=== PATIENT | female | born 1990 | race Caucasian/White ===

== ENCOUNTER 2017-06-28 08:00 | Outpatient (CLI) | payer OTHER ==
[2017-06-30 14:32] LABS: TOTAL PROTEIN,URINE TIMED < 6 mg/dL; TOTAL VOLUME 24HRS,URINE 2500 mL
== END 2017-06-28 23:59 ==
LOC: LAB.R 08:00
PROVIDERS: ATTEND Registered Nurse
DX: Z36.9 Encounter for antenatal screening, unspecified (principal); O99.212 Obesity complicating pregnancy, second trimester
CPT/HCPCS: 84156

== ENCOUNTER 2017-06-28 11:47 | Outpatient (CLI) | payer OTHER ==
[2017-06-28 13:31] LABS: BASOPHILS % (AUTO) 0.3 %; EOSINOPHILS # (AUTO) 0.2 10^3/uL (0.0-0.7); EOSINOPHILS % (AUTO) 1.4 %; HGB - HEMOGLOBIN 11.9 g/dL (12.0-16.0); LYMPHOCYTES # (AUTO) 1.6 10^3/uL (1.5-3.5); LYMPHOCYTES % (AUTO) 13.8 %; MEAN CORPUSCULAR HEMOGLOBIN 29.5 pg (27.0-31.0); MEAN CORPUSCULAR HGB CONC 33.7 g/dL (32.0-36.0); MEAN CORPUSCULAR VOLUME 87.6 fL (81.0-99.0); MEAN PLATELET VOLUME 7.1 fL (7.9-10.8); MONOCYTES # (AUTO) 0.4 10^3/uL (0.0-1.0); MONOCYTES % (AUTO) 3.5 %; NEUTROPHILS # (AUTO) 9.2 10^3/uL (1.5-6.6); PLT - PLATELET COUNT 298 10^3/uL (130-450); RED BLOOD COUNT 4.03 10^6/uL (4.20-5.40); RED CELL DISTRIBUTION WIDTH 14.3 % (12.0-15.0); WHITE BLOOD COUNT 11.4 x10^3/uL (4.8-10.8)
[2017-06-28 13:44] LABS: ALBUMIN 3.6 g/dL (3.2-5.5); ALBUMIN/GLOBULIN RATIO 0.9 (1.0-2.2); BILIRUBIN,TOTAL 0.3 mg/dL (0.2-1.0); CALCIUM 9.2 mg/dL (8.5-10.3); CREATININE 0.5 mg/dL (0.4-1.0); TOTAL PROTEIN 7.5 g/dL (6.7-8.2)
[2017-06-28 13:48] LABS: BILIRUBIN,URINE NEGATIVE (NEGATIVE); GLUCOSE, URINE (UA) NEGATIVE (NEGATIVE); KETONES,URINE (UA) NEGATIVE (NEGATIVE); LEUKOCYTE ESTERASE, URINE NEGATIVE (NEGATIVE); NITRITE,URINE NEGATIVE (NEGATIVE); OCCULT BLOOD,URINE SMALL (NEGATIVE); PROTEIN,URINE NEGATIVE (NEGATIVE); UROBILINOGEN,URINE 0.2 (NORMAL) E.U./dL (NORMAL)
[2017-06-28 13:50] LABS: HEMOGLOBIN A1C 0.5 g/dL; HEMOGLOBIN A1C % 5.7 % (4.6-6.2)
[2017-06-28 13:51] LABS: CLARITY,URINE CLEAR (CLEAR)
[2017-06-28 13:58] LABS: BACTERIA,URINE Moderate /HPF (None Seen); SQUAMOUS EPITHELIAL CELL,UR NONE SEEN (<= Few)
[2017-06-29 12:41] LABS: HIV AG/AB 4TH GEN NON-REACTIVE (NON-REACTIVE)
[2017-06-29 13:06] LABS: HEPATITIS B SURFACE ANTIGEN NON-REACTIVE (NON-REACTIVE); HEPATITIS C ANTIBODY NON-REACTIVE (NON-REACTIVE)
== END 2017-06-28 11:48 | disposition home or self-care (01) ==
LOC: LAB 11:47
PROVIDERS: ATTEND Registered Nurse
DX: O99.212 Obesity complicating pregnancy, second trimester (principal); Z36.9 Encounter for antenatal screening, unspecified
CPT/HCPCS: 36415; 80053; 81001; 81599; 82950; 83036; 85025; 86592; 86762; 86803; 86850; 86900; 86901; 87340; 87389

== ENCOUNTER 2017-09-06 07:23 | Outpatient (CLI) | payer OTHER ==
--- NOTE | 2017-09-06 12:53 | Ultrasound Report ---
Procedure Date: 09/06/2017 Accession Number: [id number] / [id number] Procedure: US - OB Detailed Eval CPT Code: FULL RESULT: EXAM: OB Detailed Eval DATE: 09/06/2017 9:46 AM CLINICAL HISTORY: ENCOUNTER FOR SCREENING OF MOTHER TECHNIQUE: Real-time scanning was performed with franchise sales representative static images obtained. COMPARISON: None. Dating according to the order is 22 weeks 5 days. LAST MENSTRUAL PERIOD: Uncertain Clinical Age: 22 weeks 5 days US Age: 23 weeks 4 days EFW Hadlock: 602 grams EFW % Hadlock: 80% Heart Rate: 144 bpm EDC: 01/05/2018 US EDC: 12/30/2017 BPD Hadlock: 23 weeks 5 days; Mean mm 58 HC Hadlock: 23 weeks 2 days; Mean mm 212 AC Hadlock: 23 weeks 5 days; Mean mm 190 FL Hadlock: 23 weeks 2 days; Mean mm 41 Presentation: Variable Placental Location: Posterior Cervical Length: 4.6 cm Amniotic Fluid: SANDRA Subjectively normal; MVP 5.6 cm FINDINGS: There is a single viable intrauterine gestation, in variable position. heart rate is 144 BPM. The placenta is posterior, without evidence of previa. Amniotic fluid volume is subjectively normal, with this pocket of 5.6 cm. No adnexal lesion or free fluid is present. The following anatomic structures were visualized and appear normal: The intracranial contents, including the ventricles and posterior fossa; the lips and orbits; the spine; the heart, including 4 chamber view and left ventricular outflow tract, and diaphragm; the abdominal contents, including the stomach, the bilateral kidneys, and urinary bladder, as well as a normal 3-vessel cord insertion; 4 limbs. The right ventricular outflow tract is suboptimally visualized, due to positioning. IMPRESSION: Single viable intrauterine gestation, with size in keeping with provided dating. Suboptimal visualization of the right ventricular outflow tract, due to positioning. Otherwise, unremarkable anatomic survey.
--- NOTE | 2017-09-20 10:09 | ANESTHESIA ---
Pre-Anesthesia VS, & Labs - Diagnosis IUP 24 weeks, BMI42.8 - Procedure Procedure: Anesthesia Evaluation Anes History & Medical History - Anesthetic History Family history of Anesthesia Complications: Denies Family history of Malignant Hyperthermia: Denies - Airway/Dental Neck Mobility: Normal Mallampati classification: I Thyromental Distance: greater than 6 cm - Medical History Cardiovascular: reports: Hypertension Pulmonary: reports: None, Other (snoring) Musculoskeletal: reports: Chronic back pain (low back) Blood Disorders: reports: None Skin: reports: None Smoking Status: Never smoker Exam - Exam General: Alert, Oriented x3, Cooperative, No acute distress Neurological: Normal gait Mental/Cognitive Status: Alert/Oriented X3 Cognitive Status: Within normal limits Plan - ASA Classification ASA classification: 2-Mild systemic disease (Patient seen at request of [facility] to evaluate epidural and airway exam d/t BMI of 42.8 (5'7"/273# this AM) . Very pleasant and "excited to be " 27 year old G2 with history of spont. . BMI was discussed at length and the need for a tertiary care center if her BMI exceeds 50. Pt does not currently desire an epidural but the process was explained per her request. The less common need for a section was also discussed briefly, including the possibility of using Epidural , Spinal, or General Anesthesia. Patient presents with a MPI mouth opening as well as FROM at neck and TM distance >6cm. Pt states she has a long standing history of chronic lower back pain. Pt is well aware of her current BMI as explains that she has good intentions of eating healthy and being more active. Pt was started on Labetalol in week 16 for HTN. She also states the new RX is controlling her BP well (115 SBP in office this am per pt).)
== END 2017-09-06 07:24 | disposition home or self-care (01) ==
LOC: DI 07:23
PROVIDERS: ATTEND Obstetrics & Gynecology
DX: Z36.9 Encounter for antenatal screening, unspecified (principal)
CPT/HCPCS: 76811

== ENCOUNTER 2017-10-04 09:45 | Outpatient (CLI) | payer OTHER ==
[2017-10-04 11:30] LABS: HGB - HEMOGLOBIN 11.1 g/dL (12.0-16.0); MEAN CORPUSCULAR HEMOGLOBIN 30.4 pg (27.0-31.0); MEAN CORPUSCULAR VOLUME 89.4 fL (81.0-99.0); MEAN PLATELET VOLUME 7.5 fL (7.9-10.8); RED BLOOD COUNT 3.67 10^6/uL (4.20-5.40); WHITE BLOOD COUNT 11.7 x10^3/uL (4.8-10.8)
== END 2017-10-04 09:46 | disposition home or self-care (01) ==
LOC: LAB 09:45
PROVIDERS: ATTEND Registered Nurse
DX: Z34.82 Encounter for supervision of other normal pregnancy, second trimester (principal)
CPT/HCPCS: 36415; 82950; 85027; 86850

== ENCOUNTER 2017-10-18 09:11 | Outpatient (CLI) | payer OTHER ==
--- NOTE | 2017-10-18 12:42 | Ultrasound Report ---
Procedure Date: 10/18/2017 Accession Number: [id number] / [id number] Procedure: US - OB F/U or Repeat CPT Code: FULL RESULT: EXAM: OB F/U or Repeat DATE: 10/18/2017 10:57 AM CLINICAL HISTORY: COMPLETION OF FAS/ SCREENING FOLLOW UP TECHNIQUE: Real-time scanning was performed with customer service representative teacher static images obtained. COMPARISON: 09/06/2017. Clinical Age: 29 weeks 4 days US Age: 29 weeks 5 days EFW Hadlock: 1374 grams EFW % Hadlock: 60% Heart Rate: 148 bpm EDC: 12/30/2017 US EDC: 12/29/2017 BPD Hadlock: 30 weeks 4 days; Mean mm 76 HC Hadlock: 273 weeks 5 days; Mean mm 29 AC Hadlock: 29 weeks 0 days; Mean mm 248 FL Hadlock: 29 weeks 2 days; Mean mm 56 Presentation: Vertex Placental Location: Posterior Cervical Length: 4.3 cm Amniotic Fluid: SANDRA 16 cm; MVP 16 cm FINDINGS: Single viable intrauterine gestation in vertex presentation with a posterior placenta without evidence of previa and a heart rate of 148 bpm. The sonographic age on today's exam is 29 weeks and 5 days. The right ventricular outflow tract was again not adequately visualized due to position and the maternal umbilical shadow. IMPRESSION: Single viable intrauterine gestation with a sonographic age of 29 weeks and 5 days on today's exam. The right ventricular outflow tract was again not adequately visualized due to position and maternal umbilical shadowing.
== END 2017-10-18 09:12 | disposition home or self-care (01) ==
LOC: DI 09:11
PROVIDERS: ATTEND Obstetrics & Gynecology
DX: Z36.2 Encounter for other antenatal screening follow-up (principal)
CPT/HCPCS: 76816

== ENCOUNTER 2017-11-01 07:33 | Outpatient (CLI) | payer OTHER | END 2017-11-01 07:34 | disposition home or self-care (01) | LOC: LAB 07:33 | PROVIDERS: ATTEND Registered Nurse | DX: R73.02 Impaired glucose tolerance (oral) (principal) | CPT/HCPCS: 36415; 82951; 82952 ==

== ENCOUNTER 2017-11-24 15:05 | Outpatient (CLI) | payer OTHER ==
--- NOTE | 2017-11-29 14:43 | Ultrasound Report ---
Reason: COMPLETION OF FAS Procedure Date: 11/24/2017 Accession Number: [id number] / [id number] Procedure: US - OB F/U or Repeat CPT Code: FULL RESULT: EXAM: COMPLETE OBSTETRICAL ULTRASOUND EXAM DATE: 11/24/2017 04:03 PM. CLINICAL HISTORY: anatomic survey. COMPARISON: 10/18/2017. TECHNIQUE: Real-time sonographic evaluation of the fetus performed by the principal developer. Multiple small business representative static images were saved for review. DATING: Established EGA 34 weeks 6 days with ILIANA 12/30/2017 based on initial ultrasound. EGA 35 weeks 0 days with ILIANA 12/29/2017 based on the current ultrasound. GENERAL EVALUATION Jerez . Cardiac activity: 139 bmp. movement: Visualized. Presentation: Cephalic. Placenta: Posterior position. Amniotic fluid: SANDRA of 14.1 cm MVP 5.5 cm. BIOMETRY Bi-Parietal Diameter (BPD): 8.5 cm, 34 weeks 2 days Head Circumference (HC): 31.6 cm, 35 weeks 3 days Abdominal Circumference (AC): 31.3 cm, 35 weeks 2 days Femur Length (FL): 6.9 cm, 35 weeks 1 day Estimated Weight: 2602 +/-600 gm, 54th percentile for 35 weeks 0 days. ANATOMY Limited follow-up was done to assess the right ventricular outflow tract. Unfortunately, because of size and position and patient body habitus, this was not able to be adequately visualized. Left ventricular outflow tract is unremarkable. Unremarkable stomach and four-chamber heart. MATERNAL STRUCTURES Uterine wall is unremarkable. Adnexa not assessed. IMPRESSION: Limited follow-up with unremarkable general parameters as noted above. Appropriate interval growth. Right ventricular outflow tract still not adequately seen.
== END 2017-11-24 15:06 | disposition home or self-care (01) ==
LOC: DI 15:05
PROVIDERS: ATTEND Nurse Practitioner Obstetrics & Gynecology
DX: Z53.9 Procedure and treatment not carried out, unspecified reason (principal)
CPT/HCPCS: 76816

== ENCOUNTER 2017-12-13 11:11 | Outpatient (CLI) | payer OTHER | END 2017-12-13 11:12 | disposition home or self-care (01) | LOC: LAB.R 11:11 | PROVIDERS: ATTEND Registered Nurse | DX: Z36.85 Encounter for antenatal screening for Streptococcus B (principal) | CPT/HCPCS: 87797 ==

== ENCOUNTER 2017-12-13 13:59 | Outpatient (CLI) | payer OTHER ==
--- NOTE | 2017-12-13 17:55 | Ultrasound Report ---
Reason: ENCOUNTER FOR SCREENING FOR MACROS Procedure Date: 12/13/2017 Accession Number: [id number] / [id number] Procedure: US - OB F/U or Repeat CPT Code: FULL RESULT: EXAM: FOLLOW-UP OBSTETRICAL ULTRASOUND EXAM DATE: 12/13/2017 02:57 PM. CLINICAL HISTORY: Macrosomia. COMPARISON: 11/24/2017. TECHNIQUE: Real-time sonographic evaluation of the fetus performed by the e d tech. Multiple treasury representative static images were saved for review. DATING: Established EGA 37 weeks 4 days with ILIANA 12/30/2017 based on initial ultrasound. EGA 37 weeks 1 day with ILIANA 01/02/2018 based on the current ultrasound. GENERAL EVALUATION Jerez . Cardiac activity: 140 bpm. movement: Visualized. Presentation: Cephalic, spine up. Placenta: Posterior position. Amniotic fluid: Normal. SANDRA 17.8 cm. BIOMETRY Bi-Parietal Diameter (BPD): 90.3 cm, 36 weeks 4 days Head Circumference (HC): 329.8 cm, 37 weeks 4 days Abdominal Circumference (AC): 332.9 cm, 37 weeks 1 day Femur Length (FL): 73.0 cm, 37 weeks 3 days Estimated Weight: 3146 gm, 47th percentile for 37 weeks 4 days. ANATOMY Grossly unremarkable. Still unable to see RVOT. MATERNAL STRUCTURES Unremarkable. IMPRESSION: 1. Jerez live intrauterine with gestational age 37 weeks 4 days based on established EGA, initial ultrasound. 2. Estimated weight is within expected limits for assigned dating. 3. Normal interval growth compared to 11/24/2017. JIMYA
== END 2017-12-13 14:00 | disposition home or self-care (01) ==
LOC: DI 13:59
PROVIDERS: ATTEND Registered Nurse
DX: Z36.88 Encounter for antenatal screening for fetal macrosomia (principal); Z36.85 Encounter for antenatal screening for Streptococcus B
CPT/HCPCS: 76816; 87797

== ENCOUNTER 2017-12-14 09:51 | Outpatient (CLI) | payer OTHER ==
[2017-12-14 10:31] VITALS: BP 120/81
== END 2017-12-14 10:35 | disposition home or self-care (01) ==
LOC: WFO 09:51 → FBP 09:52 → WFO 10:35
PROVIDERS: ATTEND Nurse Practitioner Obstetrics & Gynecology
DX: O13.3 Gestational [pregnancy-induced] hypertension without significant proteinuria, third trimester (principal); Z3A.36 36 weeks gestation of pregnancy
CPT/HCPCS: 59025

== ENCOUNTER 2017-12-16 08:50 | Outpatient (CLI) | payer OTHER ==
[2017-12-16 09:20] VITALS: BP 128/78
== END 2017-12-16 09:22 | disposition home or self-care (01) ==
LOC: WFO 08:50 → FBP 08:51 → WFO 09:22
PROVIDERS: ATTEND Registered Nurse
DX: O10.913 Unspecified pre-existing hypertension complicating pregnancy, third trimester (principal); Z3A.37 37 weeks gestation of pregnancy
CPT/HCPCS: 59025

== ENCOUNTER 2017-12-19 15:46 | Outpatient (CLI) | payer OTHER ==
[2017-12-19 16:08] VITALS: BP 124/73
[2017-12-19 17:08] LABS: BASOPHILS % (AUTO) 0.3 %; EOSINOPHILS # (AUTO) 0.1 10^3/uL (0.0-0.7); EOSINOPHILS % (AUTO) 0.7 %; HGB - HEMOGLOBIN 11.9 g/dL (12.0-16.0); LYMPHOCYTES # (AUTO) 1.6 10^3/uL (1.5-3.5); MEAN CORPUSCULAR HEMOGLOBIN 31.2 pg (27.0-31.0); MEAN CORPUSCULAR HGB CONC 35.7 g/dL (32.0-36.0); MEAN CORPUSCULAR VOLUME 87.6 fL (81.0-99.0); MEAN PLATELET VOLUME 8.3 fL (7.9-10.8); MONOCYTES # (AUTO) 0.5 10^3/uL (0.0-1.0); MONOCYTES % (AUTO) 6.1 %; NEUTROPHILS # (AUTO) 6.2 10^3/uL (1.5-6.6); NEUTROPHILS % (AUTO) 73.9 %; PLT - PLATELET COUNT 222 10^3/uL (130-450); RED BLOOD COUNT 3.83 10^6/uL (4.20-5.40); RED CELL DISTRIBUTION WIDTH 14.7 % (12.0-15.0); WHITE BLOOD COUNT 8.4 x10^3/uL (4.8-10.8)
[2017-12-19 17:11] LABS: CREATININE,URINE 74.2 mg/dL; PROTEIN/CREATININE RATIO,URINE 0.1 (<=0.2)
[2017-12-19 17:22] LABS: ALBUMIN/GLOBULIN RATIO 0.7 (1.0-2.2); BILIRUBIN,TOTAL 0.5 mg/dL (0.2-1.0); CALCIUM 9.6 mg/dL (8.5-10.3); CREATININE 0.9 mg/dL (0.4-1.0); TOTAL PROTEIN 7.3 g/dL (6.7-8.2); URIC ACID 6.1 mg/dL (2.6-7.2)
== END 2017-12-19 17:30 | disposition home or self-care (01) ==
LOC: WFO 15:46 → FBP 15:48 → WFO 17:30
PROVIDERS: ATTEND Nurse Practitioner Obstetrics & Gynecology
DX: O99.89 Other specified diseases and conditions complicating pregnancy, childbirth and the puerperium (principal); R10.9 Unspecified abdominal pain; O47.1 False labor at or after 37 completed weeks of gestation; Z3A.37 37 weeks gestation of pregnancy
CPT/HCPCS: 80053; 82570; 83615; 84156; 84550; 85025; 99213

== ENCOUNTER 2017-12-23 09:00 | Outpatient (CLI) | payer OTHER ==
[2017-12-23 09:53] VITALS: BP 123/76
== END 2017-12-23 09:49 | disposition home or self-care (01) ==
LOC: WFO 09:00 → FBP 09:01 → WFO 09:49
PROVIDERS: ATTEND Registered Nurse
DX: O10.913 Unspecified pre-existing hypertension complicating pregnancy, third trimester (principal); Z3A.38 38 weeks gestation of pregnancy; Z79.899 Other long term (current) drug therapy
CPT/HCPCS: 59025

== ENCOUNTER 2017-12-25 07:55 | Inpatient (IN) | payer OTHER ==
[2017-12-25] MEDS ORDERED: ONDANSETRON 4 MG/2 ML VIAL IVP PRN (09:11)
[2017-12-25] MEDS ORDERED: fentaNYL 100 MCG/2 ML VIAL IVP PRN (09:11)
[2017-12-25] MEDS: SODIUM CHLORIDE FLUSH 0.9% 10 ML SYRINGE IVP PRN ×2 (10:17→15:53)
[2017-12-25] MEDS: LACTATED RINGERS 1,000 ML IV SCH (10:17)
[2017-12-25 11:52] LABS: BASOPHILS % (AUTO) 0.1 %; EOSINOPHILS # (AUTO) 0.1 10^3/uL (0.0-0.7); EOSINOPHILS % (AUTO) 0.7 %; HGB - HEMOGLOBIN 11.3 g/dL (12.0-16.0); LYMPHOCYTES # (AUTO) 1.3 10^3/uL (1.5-3.5); LYMPHOCYTES % (AUTO) 15.2 %; MEAN CORPUSCULAR HEMOGLOBIN 30.4 pg (27.0-31.0); MEAN CORPUSCULAR HGB CONC 34.8 g/dL (32.0-36.0); MEAN CORPUSCULAR VOLUME 87.3 fL (81.0-99.0); MEAN PLATELET VOLUME 8.5 fL (7.9-10.8); MONOCYTES # (AUTO) 0.4 10^3/uL (0.0-1.0); NEUTROPHILS # (AUTO) 6.9 10^3/uL (1.5-6.6); PLT - PLATELET COUNT 203 10^3/uL (130-450); RED BLOOD COUNT 3.72 10^6/uL (4.20-5.40); RED CELL DISTRIBUTION WIDTH 15.1 % (12.0-15.0); WHITE BLOOD COUNT 8.7 x10^3/uL (4.8-10.8)
[2017-12-25 12:03] LABS: ALBUMIN 2.7 g/dL (3.2-5.5); ALBUMIN/GLOBULIN RATIO 0.7 (1.0-2.2); BILIRUBIN,TOTAL 0.4 mg/dL (0.2-1.0); CALCIUM 9.4 mg/dL (8.5-10.3); CREATININE 0.7 mg/dL (0.4-1.0); TOTAL PROTEIN 6.6 g/dL (6.7-8.2)
[2017-12-25 13:00] LABS: CREATININE,URINE 101.7 mg/dL; PROTEIN/CREATININE RATIO,URINE 0.1 (<=0.2)
--- NOTE | 2017-12-25 13:10 | HISTORY & PHYSICAL EXAMINATION ---
Admit History - Instructions [place]/Slash: -Left hand click circles element as positive or present. -Right hand click slashes element as negative or not present. - Visit Reason Visit Reason: Other (induction of labor for CHTN on beta reed) - : 2 Parity: 0 Premature: 0 Ectopic: 0 : 1 Care: positive: [facility] Risk/History: positive: Other (chronic HTN) Complications This : positive: Chronic HTN (on labetalol 100mg po BID) Smoking Status: Never smoker - Mother's Labs Mother's Blood Type: positive: O Mother's RH: positive: Positive GBS: positive: Group B Step Negative Rubella Status: positive: Immune Meds/Allgy - Allergies Allergies/Adverse Reactions: Allergies Allergy/AdvReac Type Severity Reaction Status Date / Time No Known Drug Allergies Allergy Verified 12/23/17 09:09 Review of Systems - Constitutional Constitutional: denies: Fatigue, Fever, Chills - Eyes Eyes: denies: Blurred vision, Spots in vision - Cardiovascular Cariovascular: denies: Irregular heart rate, Palpitations, Chest pain - Respiratory Respiratory: denies: Cough, Sputum production, Wheezing - Gastrointestinal Gastrointestinal: denies: Abdominal pain, Constipation, Diarrhea, Nausea, Vomiting - Genitourinary Genitourinary: reports: Frequency, Urgency. denies: Dysuria - Musculoskeletal Musculoskeletal: denies: Muscle pain, Back pain, Muscle aches - Integumentary Integumentary: denies: Rash, Pruritis, Lesions - Neurological Neurological: denies: General weakness, Headache - Psychiatric Psychiatric: denies: Depression, Anxiety - All Other Systems All Other Systems: reports: Reviewed and negative Physical - Abdominal Exam Vital Signs: Temp Pulse Resp BP Pulse Ox 36.8 C 79 18 132/85 H 99 12/25/17 08:47 12/25/17 08:47 12/25/17 08:47 12/25/17 08:47 12/25/17 08:47 Contraction Frequency (min/apart): Rare Contraction Intensity: positive: Mild Uterine Resting Tone: positive: Soft - Monitoring Heart Rate Baseline: 135 Strip Review: positive: Category I - Presentation Presentation: positive: Vertex - Vaginal Exam Membranes: positive: Membranes intact Dilation (in cm): 1 Effacement (%): 75 Station: positive: -1 Cervical Position: positive: Anterior - Speculum Exam Speculum Exam Performed: positive: No Findings: negative: Gross leak - Other Notes Labor Progress Note/Additional Text: Peggy Robledo is a 27 y/o @ 38w3d by first trimester US whose has been complicated by morbid obesity w/ initial BMI 40.1, elevated 1-hr gtt @ 28 weeks (normal early 1-hr gtt) w/ normal 3-hr gtt, chronic HTN w/ initiation of labetalol for BP management during the course of the . She has had serial growth US that have demonstrated normal growth & AFV, and she has had normal antepartum surveillance. She has been taking labetalol 100mg po BID & BPs have consistently been 130s/80s w/ normal PET labs & no visual/cerebral complaints. She presents today for preinduction cervical ripening for IOL secondary to CHTN. She is without complaint. PMH: obesity, HTN, acne PSH: None OBhx: SAB first trimester 2015, no complications GYNhx: hx abnormal pap w/ colposcopy, unsure what finding was, normal pap 06/2017; denies hx STI Sochx: to Bubba, denies DV; works f/t as medical coding auditor; denies etoh/drugs/tobacco Famhx: DM, HTN, hyperlipidemia PE: GEN: AAOx3, NAD [place] obese female HEENT: grossly normocephalic, atraumatic; corrective lenses RESP: cta t/o b/l CARDIAC: rrr [id number] no murmur ABD: obese, gravid, palpable movement, no palpable contractions, lie longitudinal, presentation cephalice EFW 8# OB: EFM bl 135bpm, +accels, no decels, mod scott; [place]: occ contraction; sve: /-1 soft anterior BBOW : no lesion, IBOW MS: FROM t/o, no deformity, no edema SKIN: warm, well-perfused, c/d/i, tattoos NEURO: no focal deficit PSYCH: normal mood & affect, pleasantly conversant Plan for Labor - Plan For Labor I expect patient to be DC'd or transferred within 96 hours.: Yes Plan for Labor: 1. admit to observation 2. place iv & draw admit labs & PET labs 3. misoprostol 50mcg po q 4hrs 4. CEFM & careful BP monitoring 5. reviewed analgesia/anesthesia options 6. continue labetalol 100mg po BID
[2017-12-25] MEDS: miSOPROStol 100 MCG TABLET BC SCH ×3 (13:11→21:48)
--- NOTE | 2017-12-25 17:31 | PROVIDER PROGRESS NOTE ---
Labor Progress Note - Uterine Monitoring Uterine Monitoring Mode: positive: External toco Contraction Frequency (min/apart): 6 Contraction Intensity: positive: Mild Uterine Resting Tone: positive: Soft - Monitoring Monitor Mode: positive: External ultrasound Heart Rate Baseline: 130 Heart Rate Variability: positive: Moderate (6-25 bmp) Accelerations: positive: Present, 15x15 Decelerations: positive: None - Vaginal Exam Dilation (in cm): not reassessed - Labor Progress Note Labor Progress Note/Additional Text: S: Peggy is doing well & is without complaint. She is accompanied by william and, Bubba, who is supportive. O: AAOx3, NAD [place] obese gravid female VSS Labs WNL, TP/Cr 0.1 EFM: BL 130bpm, +accels, no decels, mod scott TOCO: uterine contractions q 6 min, palp mod SVE deferred A: 27 y/o @ 38w3d w/ CHTN, stable on beta reed, no evidence of superimposed PET Presently normotensive GBS negative w/ IBOW Preinduction cervical ripening s/p 1 dose of buccal misoprostol 50mcg, no clinical change Adequate pain control w/o analgesia/anesthesia w/ desire for unmedicated delivery FHTs cat I P: 1. continue misoprostol 50mcg BC q 4hrs per protocol 2. CEFM 3. continue po labetalol 100mg BID 4. Analgesia/anesthesia PRN per pt request 5. Sleep aid PRN per pt request
[2017-12-25] MEDS ORDERED: LABETALOL 100 MG TABLET PO SCH (21:00)
[2017-12-26] MEDS: miSOPROStol 100 MCG TABLET BC SCH ×5 (01:44→20:18)
[2017-12-26] MEDS: PRENATAL VITAMIN TABLET PO SCH (07:39)
[2017-12-26] MEDS: LABETALOL 100 MG TABLET PO SCH ×2 (07:39→20:18)
[2017-12-26] MEDS: SODIUM CHLORIDE FLUSH 0.9% 10 ML SYRINGE IVP SCH ×4 (07:51→18:07)
[2017-12-26] MEDS: LACTATED RINGERS 1,000 ML IV SCH ×2 (07:52→17:59)
--- NOTE | 2017-12-26 10:51 | PROVIDER PROGRESS NOTE ---
Labor Progress Note - Uterine Monitoring Uterine Monitoring Mode: positive: External toco Contraction Frequency (min/apart): 5-6 Contraction Intensity: positive: Moderate Uterine Resting Tone: positive: Soft - Monitoring Monitor Mode: positive: External ultrasound Heart Rate Baseline: 130 Heart Rate Variability: positive: Moderate (6-25 bmp) Accelerations: positive: Present, 15x15 Decelerations: positive: None Strip Review: positive: Category I - Vaginal Exam Dilation (in cm): 2 Effacement (%): 80 Station: -1 Cervical Position: Anterior - Labor Progress Note Labor Progress Note/Additional Text: S: Peggy is doing well. she reports occasional cramping, some mucoid vaginal d/c when she has used the restroom; does not desire analgesia/anesthesia @ this time, somewhat bored. Declined sleep aid last night & did not sleep @ all. O: AAOx3, NAD [place] gravid obese female VSS EFM: BL 135bpm, +accels, no decels, mod scott TOCO: UCs q5-6 min, palp mild SVE: 2/80/-1, soft, anterior, BBOW A: 27 y/o @ 38w4d, IOL for CHTN on betablockers Normotensive No s/sx superimposed PET; PET labs WNL GBS negative, IBOW FHTs cat I s/p 5 doses buccal misoprostol, slight cervical change, not in labor, cervical status remains unfavorable Adequate pain control w/o analgesia/anesthesia P: 1. Continue 50mcg misoprostol buccally q 4 hours per protocol 2. Reassess cervical status w/ clinical change 3. Continue careful BP monitoring, labetalol @ 100mg po BID dosing 4. Encouraged maternal ambulation/diversionary activity 5. Reviewed importance of patient, persistent preinduction cervical ripening 6. Pt aware of pain management options 7. Reviewed plan of care w/ pt, pt's family & RNs @ bedside; all in agreement, without concerns
--- NOTE | 2017-12-26 20:38 | PROVIDER PROGRESS NOTE ---
Labor Progress Note - Uterine Monitoring Uterine Monitoring Mode: positive: External toco Contraction Frequency (min/apart): 5-6 Contraction Intensity: positive: Mild Uterine Resting Tone: positive: Soft - Monitoring Monitor Mode: positive: External ultrasound Heart Rate Baseline: 130 Heart Rate Variability: positive: Moderate (6-25 bmp) Accelerations: positive: Present, 15x15 Decelerations: positive: None Strip Review: positive: Category I - Vaginal Exam Dilation (in cm): deferred - Labor Progress Note Labor Progress Note/Additional Text: S: Peggy is doing well; she reports some occasional cramping. She is watching football w/ her mother & her . She has taken 2 baths this evening & finds this to be relaxing. O: AAOx3, NAD [place] gravid obese female VSS EFM BL 130bpm, +accels, no decels, mod csott TOCO: UCs q 5-6 min x60-80 sec, palp mod SVE: not indicated A: 27 y/O @ 38w3d by first trimester US, IOL for CHTN on betablocker tx Normotensive on labetalol 100mg po BID GBS negative w/ IBOW Unfavorable cervical status; preinduction cervical ripening s/p 7 doses buccal misoprostol w/ slight cervical change, inconsistent contraction activity FHTs cat I Adequate pain control w/o analgesia/anesthesia P: 1. continue misoprostol 50mcg BC q 4 hrs per protocol 2. continue labetalol 100mg po BID 3. continue care BP monitoring & monitoring for new onset visual/cerebral disturbance, PET labs in am 4. Ambien 5mg po this evening for sleep 5. CEFM 6. Reassess cervical status w/ clinical change 7. Analgesia/anesthesia PRN per pt request
[2017-12-26] MEDS: ZOLPIDEM 5 MG TABLET PO PRN (21:44)
[2017-12-27] MEDS: miSOPROStol 100 MCG TABLET BC SCH ×6 (00:24→22:09)
[2017-12-27 06:28] LABS: HGB - HEMOGLOBIN 11.6 g/dL (12.0-16.0); MEAN CORPUSCULAR HEMOGLOBIN 30.2 pg (27.0-31.0); MEAN CORPUSCULAR HGB CONC 33.8 g/dL (32.0-36.0); MEAN CORPUSCULAR VOLUME 89.2 fL (81.0-99.0); MEAN PLATELET VOLUME 8.2 fL (7.9-10.8); RED BLOOD COUNT 3.85 10^6/uL (4.20-5.40); RED CELL DISTRIBUTION WIDTH 15.2 % (12.0-15.0); WHITE BLOOD COUNT 9.8 x10^3/uL (4.8-10.8)
[2017-12-27 06:43] LABS: ALBUMIN 2.7 g/dL (3.2-5.5); ALBUMIN/GLOBULIN RATIO 0.7 (1.0-2.2); BILIRUBIN,TOTAL 0.5 mg/dL (0.2-1.0); CALCIUM 8.9 mg/dL (8.5-10.3); CREATININE 0.9 mg/dL (0.4-1.0); TOTAL PROTEIN 6.6 g/dL (6.7-8.2)
--- NOTE | 2017-12-27 07:42 | PROVIDER PROGRESS NOTE ---
Labor Progress Note - Uterine Monitoring Uterine Monitoring Mode: positive: External toco Contraction Frequency (min/apart): 5-6 Contraction Intensity: positive: Mild Uterine Resting Tone: positive: Soft - Monitoring Monitor Mode: positive: External ultrasound Heart Rate Baseline: 135 Heart Rate Variability: positive: Moderate (6-25 bmp) Accelerations: positive: Present, 15x15 Decelerations: positive: None Strip Review: positive: Category I - Vaginal Exam Dilation (in cm): deferred - Labor Progress Note Labor Progress Note/Additional Text: S: Peggy is doing well. She did not sleep particularly well last night. She is having some cramping & some mucoid vaginal d/c. No LOF/VB. Eager to have the process underway. O: AAOx3, NAD [place] obese gravid female VSS EFM: BL 135bpm, +accels, no decels, mod scott TOCO: UCs q 5-6 min x60-80 seconds, palp mild SVE: deferred A: 27 y/o @ 38w5d w/ CHTN on betablockers Normotensive @ present on current dosing of 100mg po labetalol BID GBS negative w/ IBOW FHTs consistently cat I Adequate pain control w/o analgesia/anesthesia preinduction cervical ripening s/p 10doses buccal misoprostol 50mcg; unfavorable cervical status no s/sx superimposed PET w/ stable PET labs this am P: 1. Continue 50mcg BC misoprostol q 4 hrs per protocol 2. Encouraged alternating ambulation/rest 3. Continue 100mg po labetalol BID 4. Analgesia/anesthesia PRN per pt request 5. Ongoing careful BP monitoring/monitor for new onset neuro sx 6. Reviewed plan of care w/ pt, family & RN @ bedside; all in agreement, without concerns.
[2017-12-27] MEDS: PRENATAL VITAMIN TABLET PO SCH (08:44)
[2017-12-27] MEDS: LABETALOL 100 MG TABLET PO SCH ×2 (08:44→18:07)
[2017-12-27] MEDS: SODIUM CHLORIDE FLUSH 0.9% 10 ML SYRINGE IVP SCH ×2 (09:48→18:07)
[2017-12-27 10:15] LABS: CREATININE,URINE 82.2 mg/dL
[2017-12-27 10:18] LABS: TOTAL PROTEIN,URINE TIMED < 6 mg/dL
[2017-12-28] MEDS: ZOLPIDEM 5 MG TABLET PO PRN (00:19)
[2017-12-28] MEDS: LACTATED RINGERS 1,000 ML IV SCH ×3 (01:19→07:03)
[2017-12-28] MEDS ORDERED: fent/BUPIV 2 MCG/0.125% 250 ML EP ONE (01:40)
[2017-12-28] MEDS ORDERED: LACTATED RINGERS 500 ML IV ONE (02:27)
[2017-12-28] MEDS ORDERED: NALBUPHINE 10 MG/ML AMP IVP PRN (02:27)
[2017-12-28] MEDS ORDERED: METOCLOPRAMIDE 10 MG/2 ML VIAL IVP PRN (02:27)
[2017-12-28] MEDS ORDERED: diphenhydrAMINE INJ 50 MG/ML VIAL IVP PRN (02:27)
[2017-12-28] MEDS ORDERED: NALOXONE 0.4 MG/ML VIAL IVP PRN (02:27)
[2017-12-28] MEDS ORDERED: ePHEDrine 50 MG/ML VIAL IVP PRN (02:27)
[2017-12-28] MEDS ORDERED: fent/BUPIV 2 MCG/0.125% 250 ML EP PRN (02:27)
[2017-12-28] MEDS ORDERED: ONDANSETRON 4 MG/2 ML VIAL IVP PRN (02:27)
[2017-12-28 06:49] LABS: RUPTURE OF MEMBRANES PLUS POSITIVE (NEGATIVE)
[2017-12-28] MEDS ORDERED: OXYTOCIN/SODIUM CHLORIDE 250 ML IV ONE ×2 (06:53→09:24)
[2017-12-28] MEDS: SODIUM CHLORIDE FLUSH 0.9% 10 ML SYRINGE IVP SCH (08:55)
[2017-12-28] MEDS ORDERED: miSOPROStol 200 MCG TABLET PO ONE (09:10)
[2017-12-28] MEDS ORDERED: MAGNESIUM HYDROXIDE 2,400 MG/30 ML UDC PO PRN (09:24)
[2017-12-28] MEDS ORDERED: HYDROCORTISONE 1% CREAM 28 GM TUBE PR PRN (09:24)
[2017-12-28] MEDS ORDERED: WITCH HAZEL/GLYCERIN 1 EACH MED..PAD TOP PRN (09:24)
[2017-12-28] MEDS ORDERED: HYDROCORTISONE/PRAMOXINE 10 GM PR PRN (09:24)
[2017-12-28] MEDS: LABETALOL 100 MG TABLET PO SCH ×2 (09:37→21:24)
--- NOTE | 2017-12-28 09:38 | DELIVERY NOTE ---
Delivery Note - Labor Labor: positive: Other (preinduction cervical ripening w/ buccal misoprostol x2 days; active labor thereafter) - Delivery Method Delivery Method: positive: Spontaneous vaginal delivery - Presentation Presentation: positive: Vertex, ZOLTAN - right occiput anterior - Nuchal Cord Nuchal Cord: positive: Present (tight x1, non-reducible; delivered shoulders/body, somersaulted through) - Anesthetic Anesthetic Type: - Amniotic Fluid Description Amniotic Fluid Description: positive: Moderate meconium - Episiotomy Type Episiotomy Type: positive: None - Laceration Laceration: positive: 1st degree, Perineal - Suture Suture Type: positive: Vicryl Suture Size: positive: 2-0 - Delivery Outcome Delivery Outcome: positive: Livebirth - [place]: positive: Placed in direct skin contact with mother, Stimulated, [place] used sex: positive: Female - Cord Cord: positive: 3 vessels - Placenta Placenta: positive: Intact, Spontaneous - Estimated Blood Loss Estimated Blood Loss (in cc): 450 - Delivery Comments (Free Text/Narrative) Delivery Comments (Free Text/Narrative): Peggy Robledo is a 27 y/o [id number] who presented for scheduled IOL for chronic HTN on beta reed therapy. She received misoprostol 50mcg buccally for a total of 14 doses & had slow cervical change, then entered spontaneous labor thereafter 12/28/2017 @ 0330. She received an epidural for anesthesia per request & progressed spontaneously to complete diltation @ 0615, for a total first stage duration of 3 hours, 15 minutes. She labored down until she felt consistent pressure & began pushing @ 0900. viable female in ZOLTAN position @ 0906, for a total 2nd stage duration of 2 hours, 51 minutes. FHTs monitored electronically t/o & consistently cat I. Tight nuchal x1 noted w/ delivery of head, non-reducible; shoulders & body delivered & infant somersaulted through cord; vigorous w/ spontaneous, lusty cry; placed directly [id number] on maternal abd; MSAF noted @ the time of delivery, but not before. Time of rupture not noted secondary to no observed fluid loss prior to delivery; noted to be SROMed @ 0615 w/ SVE when hair was palpable. Delayed cord clamping until cessation of pulsation, then cord clamped x2 by CNM, cut by pt's mother. 3VC noted, cord blood obtained. Active management of the third stage w/ Pitocin in IV fluids; Placenta del spont & intact, Pramod, @ 0908, for a total 3rd stage duration of 2 minutes. FF @ U. Vagina & perineum inspected & 1st degree perineal laceration noted, repaired under epidural anesthesia w/ 2-0 vicryl; hemostatic & well-approximated. Brisk vaginal bleeding s/p completion of repair, 800mcg buccal misoprostol administered w/ infusing Pitocin. FF & bleeding well-controlled. EBL 450mL. Apgars 8/9, weight pending. Mother & infant stable, nuzzling @ breast w/in 15 minutes of delivery.
[2017-12-28] MEDS: ACETAMINOPHEN 325 MG TABLET PO PRN ×2 (13:45→20:53)
[2017-12-28] MEDS ORDERED: miSOPROStol 200 MCG TABLET ONE (14:44)
[2017-12-28] MEDS: IBUPROFEN 800 MG TABLET PO SCH ×2 (15:02→21:24)
[2017-12-28] MEDS ORDERED: DOCUSATE SODIUM 100 MG CAPSULE PO SCH (21:00)
[2017-12-29] MEDS: IBUPROFEN 800 MG TABLET PO SCH ×2 (03:41→10:08)
[2017-12-29] MEDS: PRENATAL VITAMIN TABLET PO SCH (10:08)
[2017-12-29] MEDS: LABETALOL 100 MG TABLET PO SCH (10:08)
--- NOTE | 2017-12-29 11:01 | Discharge Plan ---
Discharge Plan Disposition: 01 Home, Self Care Condition: Good Diet: Regular Activity Restrictions: pelvic rest x6 weeks Shower Restrictions: No Driving Restrictions: No Weight Bearing: Full Weight Instruction Topics: Vaginal After, Breastfeed How To, Exercises Kegel No Smoking: If you smoke, Please STOP! Call for help. Follow-up with: Tae Alvarado, SHAWN, CINTHIA [Provider Admit Priv/Credential] -
--- NOTE | 2017-12-29 11:03 | DISCHARGE SUMMARY ---
"Discharge Summary Admit Date: 12/25/17 Discharge Date: 12/29/17 Discharging Provider: britta Code Status: Attempt Resuscitation Condition at Discharge: Good Discharge Disposition: 01 Home, Self Care Discharge Facility Name: [facility] - DIAGNOSES Admission Diagnoses: chronic hypertension 38 weeks' gestation unfavorable cervical status morbid obesity Discharge Diagnoses with Status of Each Condition: - HPI History of Present Illness: Peggy is a 27 y/o [id number] who presented for scheduled preinduction cervical ripening. She received 14 doses of buccal misoprostol & progressed over a period of 48 hours to enter active labor. She experienced SROM & received an epidural for pain management. She progressed steadily to complete dilatation w/o complication & labored down x2.5 hours, then pushed x2 minutes & delivered a viable female infant vaginally over a 1st degree perineal laceration without complication. - CONSULTS | PROCEDURES Consultations: anesthesia Procedures: preinduction cervical ripening epidural placement repair of 1st degree perineal laceration - HOSPITAL COURSE Hospital Course: , Peggy is ambulating & voiding w/o difficulty or incontinence. She is passing flatus & tolerating a regular diet. She is well w/o complications or discomfort. She reports minimal lochia rubra. Her pain is well-controlled w/ non-opioid analgesia. She intends to return to work x12 weeks. Her mother & are present & able to assist her. She is not planning a short interval & desires LARC placement @ her pp visit. She is able to fully articulate pp warning s/sx, including pp depression s/sx an d PET s/sx, and pp aftercare instructions. She is ready to leave the hospital. - ALLERGIES Allergies/Adverse Reactions: Allergies Allergy/AdvReac Type Severity Reaction Status Date / Time No Known Drug Allergies Allergy Verified 12/23/17 09:09 - MEDICATIONS Home Medications: Ambulatory Orders Medication Instructions Recorded Confirmed Ibuprofen [Motrin] 800 mg PO Q6H tablet 12/29/17 Labetalol [Trandate] 100 mg PO BID@0700,2100 tablet 12/29/17 Vitamin [Trinatal Rx 1] 1 tab PO DAILYWM tablet 12/29/17 - PHYSICAL EXAM AT DISCHARGE General Appearance: positive: Alert Eyes Bilateral: positive: Normal inspection, PERRL, EOMI Respiratory: positive: Chest non-tender, No respiratory distress, Breath sounds nml Cardiovascular: positive: Regular rate & rhythm, No murmur, No gallop Abdomen: positive: Non-tender, No distention, Other (FF u-1) Back: positive: Nml inspection Skin: positive: Color nml, No rash, Warm, Dry Extremities: positive: Non-tender, Full ROM, Nml appearance, Pedal edema (+1 b/l). negative: Calf tenderness, Bethany's sign/cords Neurologic/Psychiatric: positive: Oriented x3, CN's nml (2-12), Motor nml, Sensation nml, Mood/affect nml - LABS Result Diagrams: 12/27/17 06:17 12/27/17 06:17 - FOLLOW UP Follow Up: x1 week in outpt clinic w/ Tae Alvarado CNM, earlier PRN - TIME SPENT Time Spent in Discharge (Minutes): 20"
[2017-12-29 14:01] VITALS: BP 137/83
--- NOTE | 2017-12-29 16:59 | Labor Flowsheet ---
Labor Flowsheet Datetime Report Generated by CPN: 12/29/2017 16:58 Datetime: 12/29/2017 13:13 VITAL SIGNS NBP Sys/Heather/Mean (mmHg): 137 : 83 : 94 Pulse: 64 SpO2 (%): 100 LaborFlag: Labor Datetime: 12/28/2017 09:13 Stage 2 Comments: repair complete Datetime: 12/28/2017 09:10 Cervical Ripening Agents: Cytotec @ 800 mcg buccally Datetime: 12/28/2017 09:06 UTERINE ACTIVITY Monitor Mode: External Frequency (min): 3 Quality: Strong Duration (sec): 70 (Annotations: pt pushing with contractions) Pattern: Normal: <= 5 Contractions in 10 Minutes Resting Tone (Palpate): Relaxed ASSESSMENT A Monitor Mode: Telemetry FHR Baseline Rate : unable to determine. Pt pushing with contractions. Variability: Moderate 6-25 bpm Accelerations: None Decelerations: unable to determine due to pt pushing and not being able to obtain a continuous trac ing. Datetime: 12/28/2017 09:05 MEDICATIONS Pitocin (milliunits): Started @ wide open Datetime: 12/28/2017 09:02 STAGE 2 Pushing: Coached on Pushing Pushing Position: Pushing with Contractions; Pushing Lithotomy Pushing Progress: Descent with Pushing Datetime: 12/28/2017 09:00 Monitor Interventions for UA: [place] Adjusted Category: Category I I/O Interventions: Tucker Discontinued Anesthesia Level Check: T10- Umbilicus COMMUNICATION Communication: Provider at Bedside Provider Notified (Name): CNM Milagrosa Datetime: 12/28/2017 08:30 Respirations: 16 PAIN Pain Scale: 0 Pain Presence: None/Denies Datetime: 12/28/2017 08:19 Monitor Interventions for FHR: Ultrasound Adjusted Datetime: 12/28/2017 08:06 Patient Position/Activity: Right Tilt Datetime: 12/28/2017 07:50 PATIENT CARE IV/Blood Work: IV Bolus Started Oxygen Amount (LPM): 10 Oxygen Method: Non-Rebreather Datetime: 12/28/2017 07:46 Stage of : Labor Notification Reason: Status Update; Status; Labor Status; Membrane Status; Uterine Activity; Maternal Vital Sign Change Communication Comments: Milagrosa updated that pt was complete at 0610 and +1 station. Updated on FHR tracing with minimal variablility at times and contractions q5 minutes lasting up to 180 seconds. Updated on pts bp's. Plan to hold morning dose of labetolol until after delivery and to begin pushin g at 0830. Milagrosa will be in shortly. Datetime: 12/28/2017 07:44 Temperature (C): 37.0 Temperature Route: Oral Datetime: 12/28/2017 07:11 Patient Care Comments: repositioned to LLP Datetime: 12/28/2017 07:02 Membrane Status: Ruptured Membranes Rupture Method: Spontaneous Amniotic Fluid Amount: None Amniotic Fluid Odor: None ROM Test Kit: Positive Membrane Comments: ROM+ = positive; felt hair at 0330 Datetime: 12/28/2017 07:00 FHR Baseline Changes: No Baseline Change Datetime: 12/28/2017 06:10 Pain Type: Dull; Pressure Pain Location: Coccyx Pain Goal: 5 VAGINAL EXAM Dilatation (cm): 10.0 Effacement (%): 100 Station: 1 Exam by: Spear RNC/[place] RN Vaginal Exam Comments: ROM+ collected to r/o SROM in absence of AF Datetime: 12/28/2017 06:01 Pool: Negative Datetime: 12/28/2017 05:30 Comments: accel to 145BL; O2 off after repositioned Datetime: 12/28/2017 04:59 Vital Sign Comments: Pain Relief Measures: Epidural Given; Comfort Measures Pain Coping: Breathing Through Contractions; Sleeping Datetime: 12/28/2017 04:18 Actions for Decelerations: Oxygen Applied; IV Bolus Datetime: 12/28/2017 03:36 Vaginal Bleeding: Normal Show Cervix, Consistency: Soft Cervix, Position: Anterior Datetime: 12/28/2017 02:30 ANESTHESIA Anesthesia Plans: Epidural Anesthesia Interview: E Anesthesia Comments: HOB raised to 40 degrees Datetime: 12/28/2017 02:14 Contraction Comments: telemetry replaced on abd, comfortable with epidural Datetime: 12/28/2017 01:56 Epidural Procedure: Loading Dose Datetime: 12/28/2017 01:55 Medication Comments: epidural inserted Datetime: 12/28/2017 01:45 TEACHING Instructional Method: Verbal; Written; Patient Instructed; Family/Support Person Instructed; Verbal ized Understanding Plan of Care: Plan of Care Discussed Unit Routine: Routine Time Outs Pain Management: Epidural; Pain Scale/Goals; Comfort Measures Datetime: 12/28/2017 01:40 PROCEDURE TIME OUT Procedure Type: 0140 Procedure Verify: Correct Patient Identity; Correct Side and Site are Marked; Accurate Procedure Co nsent Form; Agreement on Procedure to be Done; Correct Patient Position; Addressed Need to Administer Antibiotics or Fluids for Irrigation; Safety Precautions Based on Patient History or Medication Use Epidural Positioning: Sitting Datetime: 12/27/2017 22:44 Pain Assessment Comments: up to jacuzzi for lower back pain Comfort Measures: Hot Shower/Tub/Spa Datetime: 12/27/2017 20:00 MATERNAL ASSESSMENT Level of Consciousness: Fully Conscious DTR's/Clonus: DTRs 2+; No Clonus Headache: Denies Breath Sounds, Left: Clear and Equal Breath Sounds, Right: Clear and Equal Nausea/Vomiting: intermittent nausea; now lightly eating/snacking RUQ Epigastric Pain: Denies Datetime: 12/27/2017 08:30 Cervical Ripening Agents Other: Cytotec 50mcg buccal given Datetime: 12/27/2017 08:00 DALY'S SCORE Dilatation (cm): 3-4 cms Effacement: >80_ effaced Station: minus 1 to 0 Consistency: Soft Position: Midposition Total Daly's Score: 10 : 9-14 = Usually no failure for induction Provider Reviewed Strip: Yes Strip Reviewed by: Jamie Alvarado Nurse Giving Report: P Sorin, RN Datetime: 12/27/2017 02:00 Vibroacoustic Stim: Datetime: 12/27/2017 00:45 Hygiene: Complete Bath Datetime: 12/26/2017 21:44 Analgesics/Sedatives: Ambien (mg) @ 5 Datetime: 12/26/2017 19:27 Labor/Induction: Labor Stages Datetime: 12/25/2017 19:31 Medications: Cervical Ripening
== END 2017-12-29 16:40 | disposition home or self-care (01) | DRG 807 ==
LOC: WFO 07:55 → FBP 07:57 → WFO 09:10 → FBP 09:11 → OBSVTOIN 12-28 01:05
PROVIDERS: ADMIT Registered Nurse; ATTEND Registered Nurse
PROC: 10E0XZZ Delivery of Products of Conception, External Approach (ICD-10-PCS; principal; 2017-12-28)
PROC: 0HQ9XZZ Repair Perineum Skin, External Approach (ICD-10-PCS; 2017-12-28)
DX: O99.214 Obesity complicating childbirth (principal); Z37.0 Single live birth; E66.01 Morbid (severe) obesity due to excess calories; O70.0 First degree perineal laceration during delivery; Z79.899 Other long term (current) drug therapy; Z3A.38 38 weeks gestation of pregnancy; O69.81X0 Labor and delivery complicated by cord around neck, without compression, not applicable or unspecified; O77.0 Labor and delivery complicated by meconium in amniotic fluid
CPT/HCPCS: 36415; 59025; 80053; 82570; 84112; 84156; 85025; 85027

== ENCOUNTER 2018-01-01 15:16 | Outpatient (CLI) | payer OTHER ==
[2018-01-01 16:04] LABS: BASOPHILS % (AUTO) 0.3 %; EOSINOPHILS # (AUTO) 0.3 10^3/uL (0.0-0.7); EOSINOPHILS % (AUTO) 3.6 %; HGB - HEMOGLOBIN 10.7 g/dL (12.0-16.0); LYMPHOCYTES # (AUTO) 1.9 10^3/uL (1.5-3.5); LYMPHOCYTES % (AUTO) 19.8 %; MEAN CORPUSCULAR HEMOGLOBIN 31.3 pg (27.0-31.0); MEAN CORPUSCULAR HGB CONC 35.5 g/dL (32.0-36.0); MEAN CORPUSCULAR VOLUME 87.9 fL (81.0-99.0); MEAN PLATELET VOLUME 7.7 fL (7.9-10.8); MONOCYTES # (AUTO) 0.6 10^3/uL (0.0-1.0); NEUTROPHILS # (AUTO) 6.6 10^3/uL (1.5-6.6); NEUTROPHILS % (AUTO) 70.3 %; PLT - PLATELET COUNT 284 10^3/uL (130-450); RED BLOOD COUNT 3.41 10^6/uL (4.20-5.40); RED CELL DISTRIBUTION WIDTH 14.9 % (12.0-15.0); WHITE BLOOD COUNT 9.4 x10^3/uL (4.8-10.8)
[2018-01-01 16:16] LABS: CREATININE 0.8 mg/dL (0.4-1.0); URIC ACID 7.3 mg/dL (2.6-7.2)
[2018-01-01 16:44] LABS: ALBUMIN/GLOBULIN RATIO 0.8 (1.0-2.2); BILIRUBIN,TOTAL 0.2 mg/dL (0.2-1.0); CALCIUM 9.5 mg/dL (8.5-10.3); CREATININE 0.9 mg/dL (0.4-1.0); TOTAL PROTEIN 6.9 g/dL (6.7-8.2)
--- NOTE | 2018-01-01 20:24 | PROVIDER PROGRESS NOTE ---
Subjective - Prog Note Date Prog Note Date: 01/01/18 Prog Note Time: 20:15 - Subjective Subjective: Peggy Robledo is a 27-year-old primiparous chronic hypertensive who recently delivered vaginally (Saturday0 after a 2-day Cytotec induction. Today on an of fice blood pressure check she was noted to have a markedly elevated pressure, 156/97. She has no headaches, edema, right upper quadrant tenderness, or visual changes. She has no fevers chills or urinary symptoms. She has been compliant with her labetalol 100 mg twice daily. She did state that she felt funny and suspected elevation of blood pressure. She has a wristband home blood pressure monitor. Mrs. Szymanski is a 27-year-old primiparous patient who has a history of chronic hypertension and was admitted on 25 December for induction at 38 weeks. She underwent a 48-hour induction with mesial process total and went on to uneventfully deliver a living female without complication. Throughout she was continued on labetalol 100 mg twice daily and discharged with the same. She was using ibuprofen 2-400 every 4-6 as needed for pain. Nursing went well. Objective - Vital Signs/Intake & Output Vital Signs: Vital Signs x48h Temp Pulse Resp BP Pulse Ox 01/01/18 17:39 140/78 H 01/01/18 16:07 61 16 143/76 H 99 01/01/18 15:50 61 16 150/82 H 100 01/01/18 15:32 98.4 F 68 16 145/85 H 99 - Lab Results Fish Bones: 01/01/18 15:52 01/01/18 15:52 Other Labs: Lab Results x24hrs 01/01/18 01/01/18 01/01/18 Range/Units 15:52 15:52 15:52 WBC (4.8-10.8) x10^3/uL RBC (4.20-5.40) 10^6/uL Hgb (12.0-16.0) g/dL Hct (37.0-47.0) % MCV (81.0-99.0) fL MCH (27.0-31.0) pg MCHC (32.0-36.0) g/dL RDW (12.0-15.0) % Plt Count (130-450) 10^3/uL MPV (7.9-10.8) fL Neut # (Auto) (1.5-6.6) 10^3/uL Lymph # (Auto) (1.5-3.5) 10^3/uL [place] # (Auto) (0.0-1.0) 10^3/uL Eos # (Auto) (0.0-0.7) 10^3/uL Baso # (Auto) (0.0-0.1) 10^3/uL Absolute Nucleated RBC x10^3/uL Nucleated RBC % /100WBC Sodium 138 (135-145) mmol/L Potassium 4.2 (3.5-5.0) mmol/L Chloride 103 (101-111) mmol/L Carbon Dioxide 25 (21-32) mmol/L Anion Gap 10.0 (6-13) BUN 12 (6-20) mg/dL Creatinine 0.9 0.8 (0.4-1.0) mg/dL Estimated GFR (MDRD) 75 L 85 L (>89) Glucose 88 (70-100) mg/dL Uric Acid 7.3 H (2.6-7.2) mg/dL Calcium 9.5 (8.5-10.3) mg/dL Total Bilirubin 0.2 (0.2-1.0) mg/dL AST 42 40 (10-42) IU/L ALT 31 (10-60) IU/L Alkaline Phosphatase 99 (42-121) IU/L Lactate Dehydrogenase 204 (91-225) IU/L Total Protein 6.9 (6.7-8.2) g/dL Albumin 3.0 L (3.2-5.5) g/dL Globulin 3.9 (2.1-4.2) g/dL Albumin/Globulin Ratio 0.8 L (1.0-2.2) 01/01/18 Range/Units 15:52 WBC 9.4 (4.8-10.8) x10^3/uL RBC 3.41 L (4.20-5.40) 10^6/uL Hgb 10.7 L (12.0-16.0) g/dL Hct 30.0 L (37.0-47.0) % MCV 87.9 (81.0-99.0) fL MCH 31.3 H (27.0-31.0) pg MCHC 35.5 (32.0-36.0) g/dL RDW 14.9 (12.0-15.0) % Plt Count 284 (130-450) 10^3/uL MPV 7.7 L (7.9-10.8) fL Neut # (Auto) 6.6 (1.5-6.6) 10^3/uL Lymph # (Auto) 1.9 (1.5-3.5) 10^3/uL [place] # (Auto) 0.6 (0.0-1.0) 10^3/uL Eos # (Auto) 0.3 (0.0-0.7) 10^3/uL Baso # (Auto) 0.0 (0.0-0.1) 10^3/uL Absolute Nucleated RBC 0.00 x10^3/uL Nucleated RBC % 0.0 /100WBC Sodium (135-145) mmol/L Potassium (3.5-5.0) mmol/L Chloride (101-111) mmol/L Carbon Dioxide (21-32) mmol/L Anion Gap (6-13) BUN (6-20) mg/dL Creatinine (0.4-1.0) mg/dL Estimated GFR (MDRD) (>89) Glucose (70-100) mg/dL Uric Acid (2.6-7.2) mg/dL Calcium (8.5-10.3) mg/dL Total Bilirubin (0.2-1.0) mg/dL AST (10-42) IU/L ALT (10-60) IU/L Alkaline Phosphatase (42-121) IU/L Lactate Dehydrogenase (91-225) IU/L Total Protein (6.7-8.2) g/dL Albumin (3.2-5.5) g/dL Globulin (2.1-4.2) g/dL Albumin/Globulin Ratio (1.0-2.2) Exam - Exam Vital Signs: Vital Signs (72 hours) 01/01/18 01/01/18 01/01/18 15:32 15:50 16:07 Temperature 98.4 F Heart Rate [ 68 61 61 Brachial] Respiratory 16 16 16 Rate Blood Pressure 145/85 H 150/82 H 143/76 H [Right Brachial artery] O2 Saturation 99 100 99 01/01/18 17:39 Temperature Heart Rate [ Brachial] Respiratory Rate Blood Pressure 140/78 H [Right Brachial artery] O2 Saturation General: Alert, Oriented x3, No acute distress HEENT: EOMI, Mucous membr. moist/pink Lungs: Clear to auscultation, Normal air movement Cardiovascular: Regular rate, Normal S1, Normal S2 Abdomen: Normal bowel sounds, No tenderness, No hepatospenomegaly, Other (Uterus is approximately 16 weeks size firm nontender; Scant lochia rubra noted on pad by nursing) Extremities: Other Skin: No rashes Neurological: Normal gait, Normal speech, Normal tone, Sensation intact, Reflexes 2+, Other (Mild pedal and ankle edema; no ring finger edema no clonus noted) Psych/Mental Status: Mental status NL, Mood NL Assess/Plan - Additional Planning My Orders: My Active Orders 01/01/18 15:37 URINE MTP/CREATININE RATIO [UC] Urgent 01/01/18 Dinner Regular Diet [DIET] Assessment/Plan - Assessment/Plan Assessment: Patient is a chronic hypertensive who recently uneventfully delivered after Cytotec induction. She has no symptoms consistent with preeclampsia. She is compliant with her medication and repetitive blood pressures have been within the therapeutic envelope or normal. The episode of high blood pressure seems to have been a isolated event. She is safe to go home and continue self- monitoring. Plan: Note patient was kept in labor and delivery for a number of hours in order to get an adequate sampling of her blood pressure. Patient was discharged home with the following instructions: * Maintain a normal activity level and continue nursing * Continue labetalol 100 twice daily * Perform daily blood pressure check with home blood pressure monitor and occasional check at our office or at the fire department * Patient was reinstructed on preeclamptic and hypertensive symptoms and she will report any they do develop immediately * Office blood pressure check and follow-up in 1 week *
[2018-01-01 20:42] VITALS: BP 124/78
--- NOTE | 2018-01-01 21:54 | Labor Flowsheet ---
Labor Flowsheet Datetime Report Generated by CPN: 01/01/2018 21:53 Datetime: 12/29/2017 13:13 VITAL SIGNS NBP Sys/Heather/Mean (mmHg): 137 : 83 : 94 Pulse: 64 SpO2 (%): 100 LaborFlag: Labor Datetime: 12/28/2017 09:13 Stage 2 Comments: repair complete Datetime: 12/28/2017 09:10 Cervical Ripening Agents: Cytotec @ 800 mcg buccally Datetime: 12/28/2017 09:06 UTERINE ACTIVITY Monitor Mode: External Frequency (min): 3 Quality: Strong Duration (sec): 70 (Annotations: pt pushing with contractions) Pattern: Normal: <= 5 Contractions in 10 Minutes Resting Tone (Palpate): Relaxed ASSESSMENT A Monitor Mode: Telemetry FHR Baseline Rate : unable to determine. Pt pushing with contractions. Variability: Moderate 6-25 bpm Accelerations: None Decelerations: unable to determine due to pt pushing and not being able to obtain a continuous trac ing. Datetime: 12/28/2017 09:05 MEDICATIONS Pitocin (milliunits): Started @ wide open Datetime: 12/28/2017 09:02 STAGE 2 Pushing: Coached on Pushing Pushing Position: Pushing with Contractions; Pushing Lithotomy Pushing Progress: Descent with Pushing Datetime: 12/28/2017 09:00 Monitor Interventions for UA: [place] Adjusted Category: Category I I/O Interventions: [place] Discontinued Anesthesia Level Check: T10- Umbilicus COMMUNICATION Communication: Provider at Bedside Provider Notified (Name): CNM Milagrosa Datetime: 12/28/2017 08:30 Respirations: 16 PAIN Pain Scale: 0 Pain Presence: None/Denies Datetime: 12/28/2017 08:19 Monitor Interventions for FHR: Ultrasound Adjusted Datetime: 12/28/2017 08:06 Patient Position/Activity: Right Tilt Datetime: 12/28/2017 07:50 PATIENT CARE IV/Blood Work: IV Bolus Started Oxygen Amount (LPM): 10 Oxygen Method: Non-Rebreather Datetime: 12/28/2017 07:46 Stage of : Labor Notification Reason: Status Update; Status; Labor Status; Membrane Status; Uterine Activity; Maternal Vital Sign Change Communication Comments: Milagrosa updated that pt was complete at 0610 and +1 station. Updated on FHR tracing with minimal variablility at times and contractions q5 minutes lasting up to 180 seconds. Updated on pts bp's. Plan to hold morning dose of labetolol until after delivery and to begin pushin g at 0830. Milagrosa will be in shortly. Datetime: 12/28/2017 07:44 Temperature (C): 37.0 Temperature Route: Oral Datetime: 12/28/2017 07:11 Patient Care Comments: repositioned to LLP Datetime: 12/28/2017 07:02 Membrane Status: Ruptured Membranes Rupture Method: Spontaneous Amniotic Fluid Amount: None Amniotic Fluid Odor: None ROM Test Kit: Positive Membrane Comments: ROM+ = positive; felt hair at 0330 Datetime: 12/28/2017 07:00 FHR Baseline Changes: No Baseline Change Datetime: 12/28/2017 06:10 Pain Type: Dull; Pressure Pain Location: Coccyx Pain Goal: 5 VAGINAL EXAM Dilatation (cm): 10.0 Effacement (%): 100 Station: 1 Exam by: Spear RNC/[place] RN Vaginal Exam Comments: ROM+ collected to r/o SROM in absence of AF Datetime: 12/28/2017 06:01 Pool: Negative Datetime: 12/28/2017 05:30 Comments: accel to 145BL; O2 off after repositioned Datetime: 12/28/2017 04:59 Vital Sign Comments: Pain Relief Measures: Epidural Given; Comfort Measures Pain Coping: Breathing Through Contractions; Sleeping Datetime: 12/28/2017 04:18 Actions for Decelerations: Oxygen Applied; IV Bolus Datetime: 12/28/2017 03:36 Vaginal Bleeding: Normal Show Cervix, Consistency: Soft Cervix, Position: Anterior Datetime: 12/28/2017 02:30 ANESTHESIA Anesthesia Plans: Epidural Anesthesia Interview: E Anesthesia Comments: HOB raised to 40 degrees Datetime: 12/28/2017 02:14 Contraction Comments: telemetry replaced on abd, comfortable with epidural Datetime: 12/28/2017 01:56 Epidural Procedure: Loading Dose Datetime: 12/28/2017 01:55 Medication Comments: epidural inserted Datetime: 12/28/2017 01:45 TEACHING Instructional Method: Verbal; Written; Patient Instructed; Family/Support Person Instructed; Verbal ized Understanding Plan of Care: Plan of Care Discussed Unit Routine: Routine Time Outs Pain Management: Epidural; Pain Scale/Goals; Comfort Measures Datetime: 12/28/2017 01:40 PROCEDURE TIME OUT Procedure Type: 0140 Procedure Verify: Correct Patient Identity; Correct Side and Site are Marked; Accurate Procedure Co nsent Form; Agreement on Procedure to be Done; Correct Patient Position; Addressed Need to Administer Antibiotics or Fluids for Irrigation; Safety Precautions Based on Patient History or Medication Use Epidural Positioning: Sitting Datetime: 12/27/2017 22:44 Pain Assessment Comments: up to jacuzzi for lower back pain Comfort Measures: Hot Shower/Tub/Spa Datetime: 12/27/2017 20:00 MATERNAL ASSESSMENT Level of Consciousness: Fully Conscious DTR's/Clonus: DTRs 2+; No Clonus Headache: Denies Breath Sounds, Left: Clear and Equal Breath Sounds, Right: Clear and Equal Nausea/Vomiting: intermittent nausea; now lightly eating/snacking RUQ Epigastric Pain: Denies Datetime: 12/27/2017 08:30 Cervical Ripening Agents Other: Cytotec 50mcg buccal given Datetime: 12/27/2017 08:00 DALY'S SCORE Dilatation (cm): 3-4 cms Effacement: >80_ effaced Station: minus 1 to 0 Consistency: Soft Position: Midposition Total Daly's Score: 10 : 9-14 = Usually no failure for induction Provider Reviewed Strip: Yes Strip Reviewed by: Jamie Alvarado Nurse Giving Report: P Sorin, RN Datetime: 12/27/2017 02:00 Vibroacoustic Stim: Datetime: 12/27/2017 00:45 Hygiene: Complete Bath Datetime: 12/26/2017 21:44 Analgesics/Sedatives: Ambien (mg) @ 5 Datetime: 12/26/2017 19:27 Labor/Induction: Labor Stages Datetime: 12/25/2017 19:31 Medications: Cervical Ripening
== END 2018-01-01 21:05 | disposition home or self-care (01) ==
LOC: WFO 15:16 → FBP 15:55 → WFO 21:05
PROVIDERS: ATTEND Obstetrics & Gynecology
DX: O10.93 Unspecified pre-existing hypertension complicating the puerperium (principal); Z79.899 Other long term (current) drug therapy
CPT/HCPCS: 36415; 80053; 82565; 83615; 84450; 84550; 85025; 85384; 99214

== ENCOUNTER 2018-04-05 10:34 | Outpatient (CLI) | payer OTHER ==
[2018-04-05 10:52] LABS: BASOPHILS # (AUTO) 0.1 10^3/uL (0.0-0.1); EOSINOPHILS # (AUTO) 0.1 10^3/uL (0.0-0.7); EOSINOPHILS % (AUTO) 1.5 %; HGB - HEMOGLOBIN 12.9 g/dL (12.0-16.0); LYMPHOCYTES # (AUTO) 1.7 10^3/uL (1.5-3.5); MEAN CORPUSCULAR HEMOGLOBIN 29.4 pg (27.0-31.0); MEAN CORPUSCULAR VOLUME 86.4 fL (81.0-99.0); MEAN PLATELET VOLUME 7.2 fL (7.9-10.8); MONOCYTES # (AUTO) 0.4 10^3/uL (0.0-1.0); MONOCYTES % (AUTO) 4.8 %; NEUTROPHILS # (AUTO) 5.1 10^3/uL (1.5-6.6); NEUTROPHILS % (AUTO) 69.7 %; PLT - PLATELET COUNT 333 10^3/uL (130-450); RED BLOOD COUNT 4.38 10^6/uL (4.20-5.40); RED CELL DISTRIBUTION WIDTH 14.4 % (12.0-15.0); WHITE BLOOD COUNT 7.3 x10^3/uL (4.8-10.8)
[2018-04-05 11:45] LABS: ALBUMIN 4.4 g/dL (3.2-5.5); ALBUMIN/GLOBULIN RATIO 1.1 (1.0-2.2); ALKALINE PHOSPHATASE 79 IU/L (42-121); ALT ALANINE AMINOTRANSFERASE 27 IU/L (10-60); AST ASPARTATE AMINOTRANSFERASE 30 IU/L (10-42); BILIRUBIN,TOTAL 0.9 mg/dL (0.2-1.0); BUN - BLOOD UREA NITROGEN 13 mg/dL (6-20); CALCIUM 9.7 mg/dL (8.5-10.3); CARBON DIOXIDE - CO2 25 mmol/L (21-32); CHLORIDE 106 mmol/L (101-111); CHOL/HDL RATIO 5.8 (<4.4); CHOLESTEROL 203 mg/dL; CREATININE 0.8 mg/dL (0.4-1.0); GFR - MDRD 85 (>89); GLUCOSE 96 mg/dL (70-100); HDL CHOLESTEROL 35 mg/dL; LDL CHOLESTEROL,CALCULATED 138 mg/dL; LDL/HDL RATIO 3.9 (<4.4); SODIUM 138 mmol/L (135-145); TOTAL PROTEIN 8.4 g/dL (6.7-8.2); VLDL CHOLESTEROL 30 mg/dL
== END 2018-04-05 10:35 | disposition home or self-care (01) ==
LOC: LAB 10:34
PROVIDERS: ATTEND Registered Nurse
DX: Z00.00 Encounter for general adult medical examination without abnormal findings (principal)
CPT/HCPCS: 36415; 80053; 80061; 83721; 84443; 85025

== ENCOUNTER 2018-09-19 08:09 | Outpatient (CLI) | payer OTHER ==
--- NOTE | 2018-09-19 23:39 | Ultrasound Report ---
Reason: TEST POSITIVE Procedure Date: 09/19/2018 Accession Number: [id number] / [id number] Procedure: US - OB First Trimester CPT Code: FULL RESULT: EXAM: FIRST TRIMESTER OBSTETRIC ULTRASOUND (Less than 11 weeks) EXAM DATE: 09/19/2018 09:01 AM. CLINICAL HISTORY: TEST POSITIVE. LMP: 07/30/2018. COMPARISONS: None. TECHNIQUE: Transabdominal and transvaginal ultrasound examination with static image documentation. CLINICAL DATES: EGA 7 weeks 2 days with ILIANA 05/06/2019 based on LMP. ASSESSMENT: Gestational Sac: Single intrauterine. Embryo: CRL (crown-rump length) 6.2 mm = 6 weeks 3 days. Cardiac activity: 122 beats per minute. Yolk sac: 3 mm. Amniotic fluid: Not accurately assessed at this gestational age. Early placenta: Not visible at this gestational age. Other: No perigestational fluid collection demonstrated. MATERNAL STRUCTURES: Uterus: Anteverted. Unremarkable. Cervix: Closed. Bilateral ovaries are unremarkable aside from a simple appearing 3.7 cm left ovarian cyst. Free Fluid: None. Other: None. IMPRESSION: 1. Single viable intrauterine at EGA 6 weeks 3 days with ILIANA 05/12/2019 based on crown-rump length, which is concordant with clinical dates. 2. Assigned dating is ILIANA 05/06/2019 based on LMP. LEANNE
== END 2018-09-19 08:10 | disposition home or self-care (01) ==
LOC: DI 08:09
PROVIDERS: ATTEND Nurse Practitioner Obstetrics & Gynecology
DX: Z32.01 Encounter for pregnancy test, result positive (principal)
CPT/HCPCS: 76801; 76817

== ENCOUNTER 2018-10-07 09:33 | Outpatient (CLI) | payer OTHER ==
[2018-10-07 21:41] LABS: TRICHOMONAS VAGINALIS DNA NEGATIVE (NEGATIVE)
== END 2018-10-07 23:59 | disposition home or self-care (01) ==
LOC: LAB.R 09:33
PROVIDERS: ATTEND Nurse Practitioner Obstetrics & Gynecology
DX: Z36.89 Encounter for other specified antenatal screening (principal)
CPT/HCPCS: 87491; 87591; 87661

== ENCOUNTER 2018-10-07 09:34 | Outpatient (CLI) | payer OTHER ==
[2018-10-07 15:23] LABS: MUDS CUTOFF CONCENTRATIONS CUTOFF CONC BELOW:
[2018-10-07 15:30] LABS: BILIRUBIN,URINE NEGATIVE (NEGATIVE); GLUCOSE, URINE (UA) NEGATIVE (NEGATIVE); KETONES,URINE (UA) NEGATIVE (NEGATIVE); LEUKOCYTE ESTERASE, URINE NEGATIVE (NEGATIVE); NITRITE,URINE NEGATIVE (NEGATIVE); OCCULT BLOOD,URINE NEGATIVE (NEGATIVE); PH,URINE 5.5 PH (5.0-7.5); PROTEIN,URINE NEGATIVE (NEGATIVE); UROBILINOGEN,URINE 0.2 (NORMAL) E.U./dL (NORMAL)
[2018-10-07 15:47] LABS: AMORPHOUS SEDIMENT,UR Marked /LPF; BACTERIA,URINE None Seen /HPF (None Seen); CLARITY,URINE CLOUDY (CLEAR); RBC,URINE None Seen /HPF (0-5); SQUAMOUS EPITHELIAL CELL,UR NONE SEEN (<= Few)
[2018-10-07 15:48] LABS: AMPHETAMINE SCREEN,URINE NEGATIVE (NEGATIVE); BENZODIAZEPINES SCREEN, URINE NEGATIVE (NEGATIVE); COCAINE SCREEN URINE NEGATIVE (NEGATIVE); METHADONE SCREEN, URINE NEGATIVE (NEGATIVE); METHAMPHETAMINES SCREEN, URINE NEGATIVE (NEGATIVE); OPIATE SCREEN, URINE NEGATIVE (NEGATIVE); OXYCODONE SCREEN, URINE NEGATIVE (NEGATIVE); PROPOXYPHENE SCREEN, URINE NEGATIVE (NEGATIVE); TRICYCLIC ANTIDEPRESSANT,URINE NEGATIVE (NEGATIVE)
== END 2018-10-07 23:59 | disposition home or self-care (01) ==
LOC: LAB.R 09:34
PROVIDERS: ATTEND Nurse Practitioner Obstetrics & Gynecology
DX: Z36.89 Encounter for other specified antenatal screening (principal)
CPT/HCPCS: 80306; 81001; 87086

== ENCOUNTER 2018-10-07 09:51 | Outpatient (CLI) | payer OTHER ==
[2018-10-07 10:12] LABS: BASOPHILS % (AUTO) 0.4 %; EOSINOPHILS # (AUTO) 0.1 10^3/uL (0.0-0.7); EOSINOPHILS % (AUTO) 0.8 %; HGB - HEMOGLOBIN 12.3 g/dL (12.0-16.0); LYMPHOCYTES # (AUTO) 1.8 10^3/uL (1.5-3.5); LYMPHOCYTES % (AUTO) 19.5 %; MEAN CORPUSCULAR HEMOGLOBIN 29.9 pg (27.0-31.0); MEAN CORPUSCULAR HGB CONC 33.6 g/dL (32.0-36.0); MEAN CORPUSCULAR VOLUME 89.1 fL (81.0-99.0); MONOCYTES # (AUTO) 0.4 10^3/uL (0.0-1.0); MONOCYTES % (AUTO) 4.1 %; NEUTROPHILS % (AUTO) 74.8 %; PLT - PLATELET COUNT 286 10^3/uL (130-450); RED BLOOD COUNT 4.11 10^6/uL (4.20-5.40); RED CELL DISTRIBUTION WIDTH 13.8 % (12.0-15.0); WHITE BLOOD COUNT 9.3 x10^3/uL (4.8-10.8)
[2018-10-07 11:43] LABS: CREATININE 0.6 mg/dL (0.4-1.0); URIC ACID 4.6 mg/dL (2.6-7.2)
[2018-10-07 11:53] LABS: HB2 TOTAL 12.4 g/dL; HEMOGLOBIN A1C 0.43 g/dL; HEMOGLOBIN A1C % 5.3 % (4.6-6.2)
[2018-10-08 14:54] LABS: HIV AG/AB 4TH GEN NON-REACTIVE (NON-REACTIVE)
[2018-10-08 16:11] LABS: HEPATITIS B SURFACE ANTIGEN NON-REACTIVE (NON-REACTIVE); HEPATITIS C ANTIBODY NON-REACTIVE (NON-REACTIVE)
== END 2018-10-07 09:52 | disposition home or self-care (01) ==
LOC: LAB 09:51
PROVIDERS: ATTEND Nurse Practitioner Obstetrics & Gynecology
DX: Z36.89 Encounter for other specified antenatal screening (principal); O13.9 Gestational [pregnancy-induced] hypertension without significant proteinuria, unspecified trimester; O99.210 Obesity complicating pregnancy, unspecified trimester
CPT/HCPCS: 36415; 80306; 81001; 81599; 82565; 82947; 83036; 83615; 84443; 84450; 84550; 85025; 86592; 86762; 86803; 86850; 86900; 86901; 87340; 87389; 87491; 87591; 87661

== ENCOUNTER 2018-11-04 08:00 | Outpatient (CLI) | payer OTHER | END 2018-11-04 23:59 | disposition home or self-care (01) | LOC: LAB.R 08:00 | PROVIDERS: ATTEND Nurse Practitioner Obstetrics & Gynecology | DX: R82.79 Other abnormal findings on microbiological examination of urine (principal) | CPT/HCPCS: 87086 ==

== ENCOUNTER 2018-12-05 10:15 | Outpatient (CLI) | payer OTHER | END 2018-12-05 10:16 | disposition home or self-care (01) | LOC: LAB 10:15 | PROVIDERS: ATTEND Nurse Practitioner Obstetrics & Gynecology | DX: Z36.8A Encounter for antenatal screening for other genetic defects (principal) | CPT/HCPCS: 36415; 81511; 81599 ==